=== PATIENT | female | born 1960 | race Caucasian/White ===

== ENCOUNTER 2019-02-02 10:40 | Emergency (ER) | payer OTHER ==
--- NOTE | 2019-02-02 11:16 | EDPHY ---
H & P Stated Complaint: weakness,spacy,nauseated started this am Time Seen by Provider: 02/02/19 10:50 HPI/ROS: Chief Complaint: Headache, weakness, malaise HPI: 58-year-old woman with a history of migraine headaches and hyponatremia is presenting with migraine headache which is not responded to her usual Maxalt. Patient states she has also had increasing malaise and fatigue today. She says she has a history of hyponatremia and does take supplemental electrolytes. For the last week she has been having increasing thirst and has been continue to take her electrolyte solution. Today she has worsening fatigue and malaise. Headache is a 7/10 and typical for her chronic migraines. She has positive photophobia. Mild nausea. No vomiting or diarrhea. No chest pain or shortness of breath. No urinary urgency or frequency. She is presenting because she is concerned that she may be hyponatremic. ROS: 10 systems were reviewed and were negative except those elements noted in the HPI. PMH: Migraine headaches, hyponatremia Social History: No smoking, no alcohol, no recreational drug use Family History: non-contributory Physical Exam: Gen: Awake, Alert, No Distress HEENT: Nose: no rhinorrhea Eyes: PERRLA, EOMI Mouth: Moist mucosa Neck: Supple, no JVD Chest: nontender, lungs clear to auscultation Heart: S1, S2 normal, no murmur Abd: Soft, non-tender, no guarding Back: no CVA tenderness, no midline tenderness Ext: no edema, non-tender Skin: no rash Neuro: CN II-XII intact, Sensation grossly intact, Strength 5/5 in bilateral upper and lower extremities - Personal History Current Tetanus Diphtheria and Acellular Pertussis (TDAP): Unsure - Medical/Surgical History Hx Asthma: No Hx Chronic Respiratory Disease: No Hx Diabetes: No Hx Cardiac Disease: No Hx Renal Disease: No Hx Cirrhosis: No Hx Alcoholism: No Hx HIV/AIDS: No Hx Splenectomy or Spleen Trauma: No Other PMH: APPY,THYROIDECTOMY,. MIGRAINES,HYPOTHYROID, - Social History Smoking Status: Never smoked Constitutional: Initial Vital Signs Temperature (C) 36.9 C 02/02/19 10:53 Heart Rate 70 02/02/19 10:53 Respiratory Rate 18 02/02/19 10:53 Blood Pressure 114/68 02/02/19 10:53 O2 Sat (%) 98 02/02/19 10:53 O2 Delivery Mode Room Air Allergies/Adverse Reactions: ciprofloxacin [From Cipro] Allergy (Verified 02/02/19 10:49) ciprofloxacin HCl [From Cipro] Allergy (Verified 02/02/19 10:49) codeine Allergy (Verified 02/02/19 10:49) Penicillins Allergy (Verified 02/02/19 10:49) Sulfa (Sulfonamide Antibiotics) Allergy (Verified 02/02/19 10:49) Home Medications: Medication Instructions Recorded Electrolyte,Oral 07/17/15 Lorazepam 07/17/15 Sudafed 30mg (OTC) 07/17/15 Meclizine HCl 08/02/15 Albuterol Hfa Anes Only [Proair 2 puffs IH QID PRN #1 mdi 06/25/16 Hfa Anes Only] Albuterol [Proventil Neb] 2.5 mg IH Q4 PRN #20 deyvial 06/25/16 Diflucan 02/02/19 Levothyroxine 02/02/19 Maxalt 02/02/19 Zofran 02/02/19 Medical Decision Making ED Course/Re-evaluation: Patient presenting with headache and fatigue. Headache is similar to her prior migraine headaches. It is not thunderclap in onset. Is not the worst headache of her life. No neck pain or stiffness. No meningismus. Laboratory evaluations are normal. She is afebrile. No findings suggestive of acute intracranial bleed or infection. She is not hyponatremic. Patient had minimal relief with Toradol. Was given Haldol. Did feel little jittery after Haldol so was given Benadryl. Patient is improved. She is sleeping. Headache is improved. Will discharge with follow-up with primary care physician, return for any concerns. - Data Points Laboratory Results: 02/02/19 11:54 POC Sodium 135 mEq/L mEq/L (135-145) POC Potassium 4.6 mEq/L mEq/L (3.3-5.0) POC Chloride 96.0 mEq/L L mEq/L (97-110) POC Total CO2 25 mEq/L mEq/L (22-31) POC BUN 9 mg/dL mg/dL (7-23) POC Creatinine 0.6 mg/dL mg/dL (0.6-1.0) POC Glucose 94 mg/dL mg/dL (70-100) POC Calcium 9.6 mg/dL mg/dL (8.5-10.4) Medications Given: Discontinued Medications Diphenhydramine HCl (Benadryl Injection) 25 mg IVP EDNOW ONE Stop: 02/02/19 13:40 Last Admin: 02/02/19 13:44 Dose: 25 mg Haloperidol Lactate (Haldol Injection) 2.5 mg IVP EDNOW ONE Stop: 02/02/19 12:55 Last Admin: 02/02/19 13:12 Dose: 2.5 mg Sodium Chloride (Ns) 1,000 mls @ 0 mls/hr IV ONCE ONE; Wide Open PRN Reason: Protocol Stop: 02/02/19 12:10 Last Admin: 02/02/19 12:20 Dose: 1,000 mls Ketorolac Tromethamine (Toradol) 15 mg IVP EDNOW ONE Stop: 02/02/19 12:10 Last Admin: 02/02/19 12:20 Dose: 15 mg Point of Care Test Results: CBC CBC Collection Date 02/02/19 CBC Collection Time 11:45 WBC 6.22 RBC 4.61 HGB 14.8 HCT 42.6 PLT 218 Neut # 4.49 Neut 72.1 LYMPH # 1.03 LYMPH 16.6 MCV 92.4 Chemistry 02/02/19 11:54 POC Sodium 135 mEq/L mEq/L (135-145) POC Potassium 4.6 mEq/L mEq/L (3.3-5.0) POC Chloride 96.0 mEq/L L mEq/L (97-110) POC Total CO2 25 mEq/L mEq/L (22-31) POC BUN 9 mg/dL mg/dL (7-23) POC Creatinine 0.6 mg/dL mg/dL (0.6-1.0) POC Glucose 94 mg/dL mg/dL (70-100) POC Calcium 9.6 mg/dL mg/dL (8.5-10.4) Departure - Departure Disposition: Home, Routine, Self-Care Clinical Impression: Migraine headache, Dehydration Condition: Good Instructions: Migraine Headache (ED), Dehydration (ED) Additional Instructions: Follow up with primary care physician in 2-3 days for re-evaluation. Return to the emergency department for worsening headache, uncontrolled nausea vomiting, fainting, or any other concerns. Referrals: [facility] [Primary Care Provider] - As per Instructions
[2019-02-02] MEDS ORDERED: KETOROLAC 15 MG/1 ML SDV IVP ONE (12:09)
[2019-02-02] MEDS ORDERED: NS 1,000 ML IV ONE (12:09)
[2019-02-02] MEDS ORDERED: HALOPERIDOL LACT 5 MG/ML INJ IVP ONE (12:54)
[2019-02-02 15:07] VITALS: BP 161/98
== END 2019-02-02 14:35 | disposition home or self-care (01) ==
LOC: CED 10:40
DX: G43.909 Migraine, unspecified, not intractable, without status migrainosus (principal); E86.0 Dehydration
CPT/HCPCS: 80048-ER; 85025-QW-ER; 96361-ER; 96374-ER; 96375-ER; 99284-ER; J1200; J1630; J1885